=== PATIENT | male | born 1970 | race Caucasian/White ===

== ENCOUNTER 2021-09-07 08:11 | Outpatient (CLI) | payer BC, MEDICARE | END 2021-09-07 08:12 | disposition home or self-care (01) | LOC: CSHULT 08:11 | PROVIDERS: ATTEND Family Medicine | DX: R74.01 Elevation of levels of liver transaminase levels (principal); R74.02 Elevation of levels of lactic acid dehydrogenase [LDH]; R16.2 Hepatomegaly with splenomegaly, not elsewhere classified; Z90.49 Acquired absence of other specified parts of digestive tract; R93.2 Abnormal findings on diagnostic imaging of liver and biliary tract | CPT/HCPCS: 76700 ==

== ENCOUNTER 2022-12-05 09:16 | Outpatient (CLI) | payer BC, OTHER | END 2022-12-05 09:17 | disposition home or self-care (01) | LOC: CSHCP 09:16 | PROVIDERS: ATTEND Internal Medicine Critical Care Medicine | DX: R06.00 Dyspnea, unspecified (principal) | CPT/HCPCS: 94060; 94726; 94729; 94760 ==